=== PATIENT | female | born 1980 | race African-American/Black ===

== ENCOUNTER 2016-08-21 11:47 | Emergency (ER) | payer MEDICAID, OTHER ==
[~2016-08-21] VITALS: Ht 170.2 cm; Wt 96.0 kg
[2016-08-21] MEDS ORDERED: HYDR25TA PO (11:58)
[2016-08-21] MEDS ORDERED: METHOCARBAMOL 500MG TABLET PO ONE (12:45)
[2016-08-21] MEDS ORDERED: KETOROLAC 60MG/2ML VIAL IM ONE (12:45)
[2016-08-21 12:50] VITALS: BP 127/95
== END 2016-08-21 13:43 | disposition home or self-care (01) ==
LOC: ER 13:32
DX: S16.1XXA Strain of muscle, fascia and tendon at neck level, initial encounter (principal); S40.012A Contusion of left shoulder, initial encounter; M54.89 Other dorsalgia; I10 Essential (primary) hypertension; D64.9 Anemia, unspecified; Z91.018 Allergy to other foods; V49.49XA Driver injured in collision with other motor vehicles in traffic accident, initial encounter; Y93.89 Activity, other specified; Y92.488 Other paved roadways as the place of occurrence of the external cause
CPT/HCPCS: 73030; 81025; 96372; 99284

== ENCOUNTER 2016-09-29 10:55 | Emergency (ER) | payer OTHER ==
[~2016-09-29] VITALS: Ht 170.2 cm; Wt 98.0 kg
[~2016-09-29 10:55] MED LIST: HYDR25TA PO
[2016-09-29] MEDS ORDERED: ONDANSETRON 4MG ODT PO ONE (12:45)
[2016-09-29] MEDS ORDERED: ACETAMINOPHEN WITH CODEINE 300/30MG TABLET PO ONE (12:45)
[2016-09-29 13:00] LABS: BASOPHILS % 0.6 % (0.0-2.0); DIFFERENTIAL COMMENT 0; EOSINOPHILS % 0.2 % (0.0-5.0); HEMATOCRIT. 36.6 % (36.0-48.0); HEMOGLOBIN. 11.8 g/dL (12.0-16.0); LYMPHOCYTES % 8.6 % (20.0-50.0); MEAN CORPUSCULAR HEMOGLOBIN 22.9 pg (28.0-32.0); MEAN CORPUSCULAR HGB CONC 32.2 g/dL (31.0-37.0); MEAN CORPUSCULAR VOLUME 71.1 fL (81.0-99.0); MEAN PLATELET VOLUME 7.4 fl (7.4-10.4); MONOCYTES % 7.3 % (2.0-8.0); NEUTROPHILS % 83.3 % (40.0-76.0); PLATELET 183 x1000/uL (130-400); RED BLOOD CELL COUNT 5.15 mill/uL (4.2-5.4); RED CELL DISTRIBUTION WIDTH 14.4 % (11.6-14.6); WHITE BLOOD COUNT 11.6 x1000/uL (4.5-11.0)
[2016-09-29 13:07] LABS: CHLORIDE 101 mEq/L (98-107); INDEX HEMOLYSI 1 (1-3); INDEX ICTERIC 1 (1-4); INDEX LIPEMIC 1 (1-3)
[2016-09-29 13:11] LABS: ANION GAP 11; CALCIUM 9.2 mg/dL (8.5-10.1); CARBON DIOXIDE 27 mEq/L (21-32); UREA NITROGEN BLOOD 5 mg/dL (7-21)
[2016-09-29 13:12] LABS: eGFR > 60 mL/min (>60)
[2016-09-29 13:20] LABS: CLARITY URINE CLOUDY (CLEAR); COLOR URINE YELLOW (YELLOW); GLUCOSE URINE NEGATIVE (NEGATIVE); KETONES URINE 2+ (NEGATIVE); LEUKOCYTE ESTERASE URINE 3+ (NEGATIVE); NITRITE URINE POSITIVE (NEGATIVE); OCCULT BLOOD URINE 3+ (NEGATIVE); PH URINE 6.5 (4.5-8.0); PROTEIN URINE 1+ (NEGATIVE); SPECIFIC GRAVITY URINE 1.011 (1.005-1.030)
[2016-09-29 13:41] LABS: BACTERIA URINE 1+; SQUAMOUS EPITHELIAL CELL URINE RARE /lpf (RARE/1+); WBC URINE 50-100 /hpf (0-2)
[2016-09-29 13:42] LABS: RBC URINE NONE SEEN /hpf (0-2)
[2016-09-29 14:00] LABS: *AMPHETAMINES SCREEN URINE NEGATIVE (NEGATIVE); *BARBITURATES SCREEN URINE NEGATIVE (NEGATIVE); *BENZODIAZEPINES SCREEN URINE NEGATIVE (NEGATIVE); *COCAINE SCREEN URINE NEGATIVE (NEGATIVE); ECSTASY MDMA SCREEN URINE NEGATIVE (NEGATIVE); METHADONE URINE SCREEN NEGATIVE (NEGATIVE); OPIATES URINE SCREEN NEGATIVE (NEGATIVE); PHENCYCLIDINE URINE SCREEN NEGATIVE (NEGATIVE)
[2016-09-29] MEDS ORDERED: SULFAMETHOXAZOLE/TRIMETHOPRIM 800/160MG TABLET PO ONE (14:00)
[2016-09-29 14:04] LABS: CANNABINOID URINE SCREEN PRESUMTIVE POSITIVE (NEGATIVE)
[2016-09-29 15:23] VITALS: BP 155/82
== END 2016-09-29 15:26 | disposition home or self-care (01) ==
LOC: ER 13:02
DX: N39.0 Urinary tract infection, site not specified (principal); N93.9 Abnormal uterine and vaginal bleeding, unspecified; I10 Essential (primary) hypertension; F12.10 Cannabis abuse, uncomplicated; Z91.018 Allergy to other foods
CPT/HCPCS: 36415; 76705; 76830; 76856; 80048; 80305; 81001; 81025; 85025; 86850; 86900; 86901; 99285; Q0162

== ENCOUNTER 2019-06-24 22:18 | Emergency (ER) | payer SELFPAY ==
[~2019-06-24] VITALS: Ht 167.6 cm; Wt 101.0 kg
[2019-06-25] MEDS ORDERED: KETOROLAC 60MG/2ML VIAL IM ONE (00:15)
[2019-06-25 01:01] VITALS: BP 124/78
== END 2019-06-25 01:02 | disposition home or self-care (01) ==
LOC: ER 22:18
DX: M54.31 Sciatica, right side (principal); M25.551 Pain in right hip; F12.10 Cannabis abuse, uncomplicated; I10 Essential (primary) hypertension; Z91.018 Allergy to other foods
CPT/HCPCS: 96372; 99283; J1885

== ENCOUNTER 2019-07-18 15:24 | Emergency (ER) | payer MEDICAID ==
[~2019-07-18] VITALS: Ht 170.2 cm; Wt 98.0 kg
[2019-07-18 15:41] VITALS: BP 144/91
[2019-07-18] MEDS ORDERED: AMLO10TA80 PO (15:44)
[2019-07-18] MEDS ORDERED: KETOROLAC 60MG/2ML VIAL IM ONE (16:45)
== END 2019-07-18 17:15 | disposition home or self-care (01) ==
LOC: ER 15:24
DX: M54.32 Sciatica, left side (principal); M25.562 Pain in left knee; I10 Essential (primary) hypertension; F12.10 Cannabis abuse, uncomplicated; Z91.018 Allergy to other foods; Z79.899 Other long term (current) drug therapy
CPT/HCPCS: 96372; 99283; J1885

== ENCOUNTER 2021-02-21 11:29 | Emergency (ER) | payer MEDICAID ==
[~2021-02-21] VITALS: Ht 167.6 cm; Wt 88.0 kg
[~2021-02-21 11:29] MED LIST changes: +AMLO10TA80 PO; -HYDR25TA PO
[2021-02-21] MEDS ORDERED: ACETAMINOPHEN 325MG TABLET PO ONE (18:00)
[2021-02-21 18:06] LABS: CLARITY URINE CLEAR (CLEAR); COLOR URINE YELLOW (YELLOW); KETONES URINE TRACE (NEGATIVE); LEUKOCYTE ESTERASE URINE NEGATIVE (NEGATIVE); NITRITE URINE NEGATIVE (NEGATIVE); OCCULT BLOOD URINE NEGATIVE (NEGATIVE); PROTEIN URINE TRACE (NEGATIVE); SPECIFIC GRAVITY URINE 1.025 (1.005-1.030)
[2021-02-21 18:09] LABS: BASOPHILS % 0.8 % (0.0-2.0); EOSINOPHILS % 1.5 % (0.0-5.0); HEMATOCRIT. 39.1 % (36.0-48.0); HEMOGLOBIN. 12.5 g/dL (12.0-16.0); LYMPHOCYTES % 40.8 % (20.0-50.0); MEAN CORPUSCULAR HEMOGLOBIN 23.8 pg (28.0-32.0); MEAN CORPUSCULAR VOLUME 74.4 fL (81.0-99.0); MEAN PLATELET VOLUME 7.9 fl (7.4-10.4); MONOCYTES % 9.9 % (2.0-8.0); PLATELET 253 x1000/uL (130-400); RED BLOOD CELL COUNT 5.26 mill/uL (4.2-5.4); RED CELL DISTRIBUTION WIDTH 15.6 % (11.6-14.6)
[2021-02-21 18:16] LABS: CHLORIDE 104 mEq/L (98-107)
[2021-02-21 18:39] LABS: *AMPHETAMINES SCREEN URINE NEGATIVE (NEGATIVE); *BARBITURATES SCREEN URINE NEGATIVE (NEGATIVE); *BENZODIAZEPINES SCREEN URINE NEGATIVE (NEGATIVE); *COCAINE SCREEN URINE NEGATIVE (NEGATIVE); METHADONE URINE SCREEN NEGATIVE (NEGATIVE); OPIATES URINE SCREEN NEGATIVE (NEGATIVE)
[2021-02-21 18:40] LABS: PHENCYCLIDINE URINE SCREEN NEGATIVE (NEGATIVE)
[2021-02-21 19:06] LABS: CANNABINOID URINE SCREEN PRESUMTIVE POSITIVE (NEGATIVE)
[2021-02-21 22:53] VITALS: BP 128/68
== END 2021-02-21 22:53 | disposition home or self-care (01) ==
LOC: ER 11:29
DX: R11.2 Nausea with vomiting, unspecified (principal); F12.10 Cannabis abuse, uncomplicated; R80.9 Proteinuria, unspecified; E86.0 Dehydration; N17.0 Acute kidney failure with tubular necrosis; K76.0 Fatty (change of) liver, not elsewhere classified; K21.9 Gastro-esophageal reflux disease without esophagitis; I10 Essential (primary) hypertension; Z87.440 Personal history of urinary (tract) infections
CPT/HCPCS: 36415; 71045; 74176; 80053; 80305; 81003; 83880; 84484; 85025; 93005; 99285

== ENCOUNTER 2022-12-25 23:28 | Emergency (ER) | payer MEDICAID, OTHER ==
[~2022-12-25] VITALS: Ht 170.2 cm; Wt 98.2 kg
[~2022-12-25 23:28] MED LIST changes: +CYCL10TA21 MT
[2022-12-25 23:41] VITALS: BP 131/69; PULSE 83; RESP 16; TEMP 98; O2SAT 100
[2022-12-26] MEDS ORDERED: CYCL10TA21 MT (00:48)
[2022-12-26] MEDS ORDERED: NAPR-681 MT (00:48)
[2022-12-26] MEDS ORDERED: KETOROLAC 60MG/2ML VIAL IM ONE (01:00)
[2022-12-26] MEDS ORDERED: LORAZEPAM 1MG TABLET PO ONE (01:00)
== END 2022-12-26 01:31 | disposition home or self-care (01) ==
LOC: ER 12-26 00:50
DX: M54.9 Dorsalgia, unspecified (principal); F12.10 Cannabis abuse, uncomplicated; I10 Essential (primary) hypertension; Z68.33 Body mass index [BMI] 33.0-33.9, adult; Z91.018 Allergy to other foods; V49.9XXA Car occupant (driver) (passenger) injured in unspecified traffic accident, initial encounter; Y93.89 Activity, other specified; Y92.89 Other specified places as the place of occurrence of the external cause; Y99.8 Other external cause status
CPT/HCPCS: 99283; 96372; J1885